=== PATIENT | male | born 1945 | race Caucasian/White ===

== ENCOUNTER 2018-01-21 07:34 | Emergency (ER) | payer MEDICARE ==
[2018-01-21 07:43] VITALS: RESP 18
--- NOTE | 2018-01-21 09:23 | RAD ---
Date of service: 01/21/2018 PROCEDURE: Radiographs of the Left Shoulder HISTORY: injury, anterior shoulder pain COMPARISON: No prior. FINDINGS: BONES: At approximately mid clavicular shaft fracture is present with the distal lateral component displaced inferiorly very little fracture contact suggested on the available views. There is overriding of the clavicle No dislocation fractured ends. JOINTS: Inferior glenohumeral hypertrophic arthrosis present. SOFT TISSUES: Normal. OTHER FINDINGS: None. IMPRESSION: Midclavicular fracture with inferior displacement and over riding. No dislocation.
--- NOTE | 2018-01-21 09:27 | C.PDOC ---
History Of Present Illness 72 year old male presents to the emergency department status-post losing his balance and falling off of a stepladder two days ago. Patient reports that the ladder was four feet high, and is currently complaining of pain to his left shoulder. He denies hitting his head, but reports that he suffered some abrasions Time Seen by Provider: 01/21/18 07:58 Chief Complaint (Nursing): Upper Extremity Problem/Injury Past Medical History Vital Signs: Last Vital Signs Temp 98.4 F 01/21/18 07:50 Pulse 106 H 01/21/18 07:50 Resp 18 01/21/18 07:50 BP 138/94 H 01/21/18 07:50 Pulse Ox 95 01/21/18 07:50 - Medical History PMH: HTN, Hypercholesterolemia - [facility] Procedures TETANUS TOXOID ADMINIST (09/30/14) Family History: States: Unknown Family Hx - Social History Hx Tobacco Use: No Hx Alcohol Use: No Hx Substance Use: No - Immunization History Hx Tetanus Toxoid Vaccination: No Hx Influenza Vaccination: No Hx Pneumococcal Vaccination: No ED Course And Treatment O2 Sat by Pulse Oximetry: 95 Disposition - Disposition
--- NOTE | 2018-01-21 09:30 | RAD ---
Date of service: 01/21/2018 PROCEDURE: Radiographs of the Chest and Left Ribs. HISTORY: fall, rib injury and pain COMPARISON: None available. TECHNIQUE: Frontal radiograph of the chest and multiple oblique radiographs of the left ribs were obtained. FINDINGS: LEFT RIBS: On 1 image series 5, image 1 there is a horizontal lucency in the region of the left 7th and 8th anterolateral ribs. This is difficult to corroborate on other views. Nevertheless nondisplaced subtle rib fractures here are a consideration given the history. Correlate with point tenderness recommended LUNGS: Clear. PLEURA: No pneumothorax or pleural fluid. CARDIOVASCULAR: Normal sized heart. No pulmonary vascular congestion. OTHER FINDINGS: A midclavicular displaced fracture also noted an mention in the left shoulder report IMPRESSION: Possible nondisplaced left 7th and 8th rib fractures as referenced above. Mid clavicular shaft fracture left-sided displaced as noted on the left shoulder x-ray report
--- NOTE | 2018-01-21 09:37 | C.PDOC ---
History Of Present Illness 72 year old male presents to the emergency department with complaints of pain to his left shoulder status-post falling off of a stepladder two days ago. Patient states that he was working around the house standing on a 4FT stepladder when he lost his balance and fell. He reports pain to his left shoulder and left arm, but denies hitting his head. Patient reports that he applied some "ultraviolet iodine" to abrasions that he suffered diffusely on his left arm. Time Seen by Provider: 01/21/18 07:58 Chief Complaint (Nursing): Upper Extremity Problem/Injury History Per: Patient History/Exam Limitations: no limitations Onset/Duration Of Symptoms: Days Current Symptoms Are (Timing): Still Present Quality: "Pain" Past Medical History Reviewed: Historical Data, Nursing Documentation, Vital Signs Vital Signs: Last Vital Signs Temp 98.4 F 01/21/18 07:50 Pulse 106 H 01/21/18 07:50 Resp 18 01/21/18 07:50 BP 138/94 H 01/21/18 07:50 Pulse Ox 95 01/21/18 09:51 - Medical History PMH: HTN, Hypercholesterolemia Surgical History: No Surg Hx - [facility] Procedures TETANUS TOXOID ADMINIST (09/30/14) Family History: States: No Known Family Hx - Social History Hx Tobacco Use: No Hx Alcohol Use: No Hx Substance Use: No - Immunization History Hx Tetanus Toxoid Vaccination: No Hx Influenza Vaccination: No Hx Pneumococcal Vaccination: No Review Of Systems Except As Marked, All Systems Reviewed And Found Negative. Musculoskeletal: Positive for: Shoulder Pain (left) Neurological: Negative for: Weakness, Numbness Physical Exam - Physical Exam Appears: Non-toxic, No Acute Distress Skin: Warm, Dry, Ecchymosis (present to the left shoulder) Head: Atraumatic, Normacephalic Eye(s): bilateral: Normal Inspection Neck: Normal, Supple Chest: Symmetrical Cardiovascular: Rhythm Regular, No Murmur Respiratory: Normal Breath Sounds, No Rales, No Rhonchi, No Wheezing Extremity: Normal ROM (at the left shoulder), Tenderness (at the left shoulder) ED Course And Treatment O2 Sat by Pulse Oximetry: 95 (RA) Pulse Ox Interpretation: Normal - Other Rad XR Right Hand X-Ray: Viewed By Me, Read By Radiologist Interpretation: IMPRESSION: No displaced fracture. Possible trabecular microfracture 5th metacarpal base -for this clinical correlation with point tenderness assessment needed. XR Left Shoulder X-Ray: Viewed By Me, Read By Radiologist Interpretation: IMPRESSION: Midclavicular fracture with inferior displacement and over riding. No dislocation. XR Left Ribs and Chest X-Ray: Viewed By Me, Read By Radiologist Interpretation: IMPRESSION: Possible nondisplaced left 7th and 8th rib fractures as referenced above. Mid clavicular shaft fracture left-sided displaced as noted on the left shoulder x-ray report Progress Note: Plan: XR Left Ribs and Chest. Keflex 1000mg PO. Motrin 600mg PO. XR Right Hand 3 Views. XR Left Shoulder Medical Decision Making Medical Decision Making: The wound on the right 3rd finger was cleansed with sterile saline and bacitracin applied. Keflex PO ordered. Disposition - Disposition Referrals: Lon Escalante III, MD [Staff Provider] - Disposition: HOME/ ROUTINE Disposition Time: 09:52 Condition: STABLE Additional Instructions: Follow up with the Orthopedist within 1-2 days without fail. return if worsened / Prescriptions: Acetaminophen [Tylenol] 325 mg PO Q6 PRN #30 tab PRN Reason: Pain, Mild (1-3) Cephalexin [Keflex] 1,000 mg PO BID #28 capsule traMADol [Ultram] 50 mg PO Q6 PRN #20 tab PRN Reason: Pain Instructions: Rib Fractures in Adults, Clavicle Fracture Forms: [facility] (Japanese) - Clinical Impression Clinical Impression: Clavicle fracture, Rib fracture, Laceration, Abrasion - PA / SOUND EDITOR / Resident Statement MD/DO has reviewed & agrees with the documentation as recorded. - Scribe Statement The provider has reviewed the documentation as recorded by the Scribe (Parth Melendez) All medical record entries made by the Scribe were at my direction and personally dictated by me. I have reviewed the chart and agree that the record accurately reflects my personal performance of the history, physical exam, medical decision making, and the department course for this patient. I have also personally directed, reviewed, and agree with the discharge instructions and disposition.
--- NOTE | 2018-01-21 09:42 | RAD ---
PROCEDURE: Right Hand Radiographs. HISTORY: fall, swelling to the 3rd MCP and hand COMPARISON: None. FINDINGS: BONES: No definitive cortical fracture seen. The trabecular markings are slightly more conspicuous at the 5th metacarpal base a trabecular microfracture here is a consideration. Top normal variant appearance is another. JOINTS: Osteoarthrosis DIP joints and 1st carpometacarpal joint. SOFT TISSUES: A 1 mm punctate hyperdensity projects between the 3rd and 4th digits on series 4, image 1 over the soft tissues at the proximal interphalangeal joint level. Other 3rd. This is not confirmed on the other two views. It may be artifactual it may be tiny soft tissue foreign body. Its chronicity is unknown. OTHER FINDINGS: None. IMPRESSION: No displaced fracture. Possible trabecular microfracture 5th metacarpal base -for this clinical correlation with point tenderness assessment needed.
[2018-01-21] MEDS ORDERED: Tdap Vaccine 0.5 ml Vial (10-64 yrs) IM ONE (09:44)
[2018-01-21 09:55] VITALS: BP 148/92; PULSE 102; TEMP 98.2; O2SAT 96
[2018-01-21] MEDS ORDERED: Bacitracin 500 Units/gm Oint Foilpak UD TOP ONE (09:56)
[2018-01-21] MEDS ORDERED: Bacitracin 500 Units/gm Oint Foilpak UD ONE (10:01)
== END 2018-01-21 10:12 | disposition home or self-care (01) ==
LOC: C.ER 07:34
DX: S42.002A Fracture of unspecified part of left clavicle, initial encounter for closed fracture (principal); S22.42XA Multiple fractures of ribs, left side, initial encounter for closed fracture; S61.212A Laceration without foreign body of right middle finger without damage to nail, initial encounter; S40.812A Abrasion of left upper arm, initial encounter; W11.XXXA Fall on and from ladder, initial encounter